=== PATIENT | male | born 1990 | race Caucasian/White ===

== ENCOUNTER 2018-04-12 09:13 | Emergency (ER) | payer OTHER ==
[2018-04-12 09:22] VITALS: BP 136/90; PULSE 65; RESP 16; TEMP 98.1; O2SAT 99
--- NOTE | 2018-04-12 09:42 | C.PDOC ---
History Of Present Illness 27-year-old male, presents to the emergency department with complaints of finger injury. Patient states he accidentally slammed door on right first finger , and had a subungal hematoma. Pain was 8/10, it is non-radiating, throbbing and constant in nature. No numbness or weakness. No other complaints at this time. Time Seen by Provider: 04/12/18 09:17 Chief Complaint (Nursing): Upper Extremity Problem/Injury History Per: Patient History/Exam Limitations: no limitations Current Symptoms Are (Timing): Still Present Past Medical History Reviewed: Historical Data, Nursing Documentation, Vital Signs Vital Signs: Last Vital Signs Temp 98.1 F 04/12/18 09:20 Pulse 65 04/12/18 09:20 Resp 16 04/12/18 09:20 BP 136/90 04/12/18 09:20 Pulse Ox 99 04/12/18 09:42 Family History: States: No Known Family Hx - Social History Hx Alcohol Use: No Hx Substance Use: No Review Of Systems Gastrointestinal: Negative for: Nausea Skin: Negative for: Rash Neurological: Negative for: Weakness, Numbness Physical Exam - Physical Exam Appears: Non-toxic, No Acute Distress Skin: Normal Color, Warm, Dry, No Rash Head: Atraumatic Eye(s): bilateral: Normal Inspection Nose: Normal Oral Mucosa: Moist Neck: Normal ROM Respiratory: No Accessory Muscle Use Extremity: No Deformity, Other (darkness with ecchymosis under the nail right first digit) Neurological/Psych: Oriented x3, Normal Speech ED Course And Treatment O2 Sat by Pulse Oximetry: 99 (RA) Pulse Ox Interpretation: Normal Medical Decision Making Medical Decision Making: used cauterizer to make a hole, no blood expressed. Disposition Counseled Patient/Family Regarding: Diagnosis, Need For Followup - Disposition Referrals: [facility] at [facility] [Outside] Disposition: HOME/ ROUTINE Disposition Time: 09:40 Condition: STABLE Forms: [facility] (Malagasy), General Discharge Instructions - POA Present On Arrival: None - Clinical Impression Clinical Impression: Subungual hematoma of fingernail - Scribe Statement The provider has reviewed the documentation as recorded by the Scribe (Reyes Alcazar) All medical record entries made by the Scribe were at my direction and personally dictated by me. I have reviewed the chart and agree that the record accurately reflects my personal performance of the history, physical exam, medical decision making, and the department course for this patient. I have also personally directed, reviewed, and agree with the discharge instructions and disposition.
[2018-04-12] MEDS ORDERED: Bacitracin 500 Units/gm Oint Foilpak UD ONE (09:43)
== END 2018-04-12 09:50 | disposition home or self-care (01) ==
LOC: C.ER 09:13
DX: S60.011A Contusion of right thumb without damage to nail, initial encounter (principal); W23.0XXA Caught, crushed, jammed, or pinched between moving objects, initial encounter

== ENCOUNTER 2018-04-25 22:44 | Emergency (ER) | payer OTHER ==
[2018-04-25 23:00] VITALS: BP 119/68; PULSE 67; RESP 20; TEMP 97.9; O2SAT 98
--- NOTE | 2018-04-26 | C.PDOC ---
History Of Present Illness 27 year old male presents to the ER with a complaint of foul odor coming out of the nail bed of his right thumb. Patient states he was seen in the ER 2 weeks ago for a subungal hematoma, since then he notes blood has been draining and recently has began having a foul odor. Denies pain or swelling of the right thumb. Time Seen by Provider: 04/25/18 23:11 Chief Complaint (Nursing): Upper Extremity Problem/Injury History Per: Patient History/Exam Limitations: no limitations Onset/Duration Of Symptoms: Days Current Symptoms Are (Timing): Still Present Recent travel outside of the [place]: No Past Medical History Reviewed: Historical Data, Nursing Documentation, Vital Signs Vital Signs: Last Vital Signs Temp 97.9 F 04/25/18 22:56 Pulse 67 04/25/18 22:56 Resp 20 04/25/18 22:56 BP 119/68 04/25/18 22:56 Pulse Ox 98 04/26/18 00:14 Surgical History: No Surg Hx Family History: States: Unknown Family Hx - Social History Hx Alcohol Use: No Hx Substance Use: No Review Of Systems Musculoskeletal: Negative for: Hand Pain Skin: Positive for: Other (Subungal hematoma) Physical Exam - Physical Exam Appears: Non-toxic Skin: Warm, Dry Head: Atraumatic, Normacephalic Eye(s): bilateral: Normal Inspection Extremity: Capillary Refill (<2 seconds), Other (Ecchymotic discoloration to fingernail of right thumb w/ foul odor and bloody drainage, no purulent drainage or erythema) Pulses: Left Radial: Normal, Right Radial: Normal Neurological/Psych: Oriented x3, Normal Speech, Normal Motor, Normal Sensation ED Course And Treatment O2 Sat by Pulse Oximetry: 98 (Room air) Pulse Ox Interpretation: Normal Progress Note: Right thumb soaked in betadine and saline, bacitracin and dressing applied. Patient is resting comfortably in the ER at this time in no acute distress, vitals are stable, will start on keflex for possible finger infection and advised to follow up with PMD or return if symptoms worsen. Disposition Counseled Patient/Family Regarding: Diagnosis, Need For Followup, Rx Given - Disposition Referrals: [facility] at [facility] [Outside] Charlotte Guaman MD [Staff Provider] - Disposition: HOME/ ROUTINE Disposition Time: 00:00 Condition: STABLE Additional Instructions: Keep finger clean / soak in mild soapy water Apply antibacterial ointment Take medications as directed Follwo up with Hand surgeon Return to ER if worse Prescriptions: Cephalexin [cephalexin] 500 mg PO Q6 #28 cap Instructions: Common Finger Injuries (DC) Forms: [facility] (Arabic) - Clinical Impression Clinical Impression: Subungual hematoma of fingernail, Infection of fingernail of right hand - PA / [employer] / Resident Statement MD/DO has reviewed & agrees with the documentation as recorded. - Scribe Statement The provider has reviewed the documentation as recorded by the Scribe Bartolo Mesa All medical record entries made by the Zaibru were at my direction and personally dictated by me. I have reviewed the chart and agree that the record accurately reflects my personal performance of the history, physical exam, medical decision making, and the department course for this patient. I have also personally directed, reviewed, and agree with the discharge instructions and disposition.
[2018-04-26] MEDS ORDERED: Bacitracin 500 Units/gm Oint Foilpak UD ONE (00:08)
== END 2018-04-26 00:18 | disposition home or self-care (01) ==
LOC: C.ER 22:44
DX: L08.9 Local infection of the skin and subcutaneous tissue, unspecified (principal); S60.011A Contusion of right thumb without damage to nail, initial encounter; X58.XXXA Exposure to other specified factors, initial encounter